=== PATIENT | female | born 1990 | race Caucasian/White ===

== ENCOUNTER 2017-11-07 23:55 | Inpatient (IN) | payer OTHER ==
[~2017-11-07] VITALS: Ht 177.8 cm; Wt 91.1 kg
[2017-11-08 00:33] VITALS: BP 132/73
[2017-11-08] MEDS ORDERED: PNV11TAB5 PO (00:53)
[2017-11-08] MEDS ORDERED: EVE1000C3 PO (00:53)
[2017-11-08] MEDS ORDERED: D5%-LACTATED RINGERS 1,000 ML IV SCH (01:20)
[2017-11-08] MEDS ORDERED: OXYTOCIN 30U/ 0.9% NaCL 500ML 500 ML IV ONE (01:20)
[2017-11-08] MEDS ORDERED: AMPICILLIN 2 GM in SODIUM CHLORIDE 0.9% 100 ML IVPB STA (01:20)
[2017-11-08] MEDS ORDERED: LACTATED RINGERS 1,000 ML IV SCH ×2 (01:20→11:19)
[2017-11-08] MEDS ORDERED: LIDOCAINE-MPF 1%, 5ML ONE ×3 (01:24→01:27)
[2017-11-08] MEDS ORDERED: MISOPROSTOL 200 MCG TABLET ONE (01:24)
[2017-11-08] MEDS ORDERED: NEWBORN KIT ONE (01:24)
[2017-11-08] MEDS ORDERED: OXYTOCIN 30U/ 0.9% NaCL 500ML 500 ML ONE (01:25)
[2017-11-08] MEDS ORDERED: FENTANYL PF 100 MCG/2ML IVPush PRN (01:30)
[2017-11-08] MEDS ORDERED: FENTANYL PF 100 MCG/2ML IV PRN (01:30)
[2017-11-08] MEDS ORDERED: ONDANSETRON 2MG/ML, 2ML IVPush PRN (01:30)
[2017-11-08 01:42] LABS: BASOPHILS # (AUTO) 0.08 x10^3/uL (0-0.1); BASOPHILS % (AUTO) 1 % (0-1); EOSINOPHILS # (AUTO) 0.17 x10^3/uL (0-0.4); EOSINOPHILS % (AUTO) 1 % (1-7); LYMPHOCYTES # (AUTO) 2.28 x10^3/uL (1-3.4); LYMPHOCYTES % (AUTO) 17 % (22-44); MD NO; MEAN CORPUSCULAR HEMOGLOBIN 32.9 pg (27.0-34.8); MEAN CORPUSCULAR HGB CONC 34.1 g/dL (32.4-35.8); MEAN CORPUSCULAR VOLUME 96.6 fL (80-100); MEAN PLATELET VOLUME 9.6 fL (7.4-10.4); MONOCYTES # (AUTO) 0.96 x10^3/uL (0.2-0.8); MONOCYTES % (AUTO) 7 % (2-9); NEUTROPHILS # (AUTO) 9.68 x10^3/uL (1.8-6.8); NEUTROPHILS % (AUTO) 74 % (42-75); PLATELET COUNT 225 x10^3/uL (130-400); RED BLOOD COUNT 3.87 x10^6/uL (3.82-5.3)
[2017-11-08] MEDS: AMPICILLIN 1 GM in SODIUM CHLORIDE 0.9% 100 ML IVPB SCH ×4 (05:38→18:11)
[2017-11-08] MEDS ORDERED: FENTANYL PF 100 MCG/2ML ONE (10:34)
[2017-11-08] MEDS ORDERED: FENTANYL/BUPIV./NS/PF 250 ML EPIDCONT SCH (11:19)
[2017-11-08] MEDS ORDERED: BUPIVACAINE/PF 0.25% ONE (11:20)
[2017-11-08] MEDS ORDERED: FENTANYL/BUPIV./NS/PF 250 ML EPIDCONT ONE (11:20)
[2017-11-08] MEDS ORDERED: EPHEDRINE 50 MG/ML, 1ML IVPush PRN (11:30)
[2017-11-08] MEDS ORDERED: LACTATED RINGERS 1,000 ML IVBOLUS PRN (11:30)
[2017-11-08] MEDS ORDERED: NALOXONE 0.4 MG/ML, 1ML IVPush PRN (11:30)
[2017-11-08] MEDS ORDERED: OXYTOCIN 30U/ 0.9% NaCL 500ML 500 ML IV PRN (16:34)
[2017-11-08] MEDS: OXYTOCIN 30U/ 0.9% NaCL 500ML 500 ML IV SCH (20:14)
[2017-11-08] MEDS ORDERED: METOCLOPRAMIDE 5 MG/ML, 2ML IV PRN (20:30)
[2017-11-08] MEDS ORDERED: GLYCERIN ADULT SUPP PR PRN (20:30)
[2017-11-08] MEDS ORDERED: METHYLERGONOVINE 0.2 MG/ML IM PRN (20:30)
[2017-11-08] MEDS ORDERED: ONDANSETRON 2MG/ML, 2ML IV PRN (20:30)
[2017-11-08] MEDS ORDERED: MISOPROSTOL 200 MCG TABLET PR PRN (20:30)
[2017-11-08] MEDS ORDERED: IBUPROFEN 600 MG TABLET PO PRN (20:30)
[2017-11-08] MEDS ORDERED: OXYcodone/APAP 5/325MG TABLET PO PRN ×2 (20:30)
[2017-11-08] MEDS ORDERED: BISACODYL 10 MG SUPP PR PRN (20:30)
[2017-11-08] MEDS ORDERED: CARBOPROST TROMETHAMINE 250 MCG/ML, 1ML IM PRN (20:30)
[2017-11-08] MEDS ORDERED: ACETAMINOPHEN 325 MG TABLET PO PRN (20:30)
[2017-11-08 22:45] VITALS: BP 97/55
[2017-11-09 02:30] VITALS: BP 99/58
[2017-11-09] MEDS: OXYTOCIN 30U/ 0.9% NaCL 500ML 500 ML IV SCH ×2 (06:14→16:14)
[2017-11-09 06:39] LABS: MEAN CORPUSCULAR HEMOGLOBIN 33.4 pg (27.0-34.8); MEAN CORPUSCULAR HGB CONC 34.1 g/dL (32.4-35.8); MEAN CORPUSCULAR VOLUME 98.1 fL (80-100); MEAN PLATELET VOLUME 9.8 fL (7.4-10.4); PLATELET COUNT 210 x10^3/uL (130-400); RED BLOOD COUNT 3.18 x10^6/uL (3.82-5.3); RED CELL DISTRIBUTION WIDTH 14.1 % (9.6-15.2)
[2017-11-09 06:51] LABS: BASOPHILS # (AUTO) 0.03 x10^3/uL (0-0.1); BASOPHILS % (AUTO) 0 % (0-1); EOSINOPHILS # (AUTO) 0.03 x10^3/uL (0-0.4); EOSINOPHILS % (AUTO) 0 % (1-7); LYMPHOCYTES # (AUTO) 1.56 x10^3/uL (1-3.4); LYMPHOCYTES % (AUTO) 10 % (22-44); MD SCAN; MONOCYTES # (AUTO) 1.19 x10^3/uL (0.2-0.8); MONOCYTES % (AUTO) 8 % (2-9); NEUTROPHILS # (AUTO) 12.22 x10^3/uL (1.8-6.8); NEUTROPHILS % (AUTO) 81 % (42-75)
[2017-11-09 08:00] VITALS: BP 97/69
[2017-11-09] MEDS: PRENATAL VIT/IRON/FA 1 EACH TABLET PO SCH (08:35)
[2017-11-09] MEDS: DOCUSATE 100 MG CAPSULE PO PRN (08:35)
[2017-11-09 12:00] VITALS: BP 112/64
[2017-11-09 16:00] VITALS: BP 110/70
[2017-11-09] MEDS: IBUPROFEN 800 MG TABLET PO PRN (16:07)
[2017-11-09 20:05] VITALS: BP 98/60
[2017-11-10] MEDS: IBUPROFEN 800 MG TABLET PO PRN (04:50)
[2017-11-10 07:51] VITALS: BP 104/61
[2017-11-10] MEDS: PRENATAL VIT/IRON/FA 1 EACH TABLET PO SCH (08:06)
[2017-11-10] MEDS: DOCUSATE 100 MG CAPSULE PO PRN (08:07)
[2017-11-10] MEDS ORDERED: IBUP-1222 PO (10:10)
== END 2017-11-10 12:34 | disposition home or self-care (01) | DRG 775 ==
LOC: LDOP 23:55 → LDIP 11-08 01:20 → 2NW 11-08 22:32
PROVIDERS: ADMIT Obstetrics & Gynecology; ATTEND Obstetrics & Gynecology
PROC: 10E0XZZ Delivery of Products of Conception, External Approach (ICD-10-PCS; principal; 2017-11-08)
PROC: 0KQM0ZZ Repair Perineum Muscle, Open Approach (ICD-10-PCS; 2017-11-08)
PROC: 0W8NXZZ Division of Female Perineum, External Approach (ICD-10-PCS; 2017-11-08)
PROC: 3E0R3BZ Introduction of Anesthetic Agent into Spinal Canal, Percutaneous Approach (ICD-10-PCS; 2017-11-08)
PROC: 00HU33Z Insertion of Infusion Device into Spinal Canal, Percutaneous Approach (ICD-10-PCS; 2017-11-08)
DX: O76 Abnormality in fetal heart rate and rhythm complicating labor and delivery (principal); O70.0 First degree perineal laceration during delivery; Z37.0 Single live birth; Z3A.40 40 weeks gestation of pregnancy
CPT/HCPCS: 36415; 85025; 86850; 86900; 89060; J0290; J3010; J3490; J2590; J7120; Q0114

== ENCOUNTER 2019-05-20 10:42 | Inpatient (IN) | payer OTHER ==
[~2019-05-20] VITALS: Ht 177.8 cm; Wt 101.8 kg
[~2019-05-20 10:42] MED LIST: EVE1000C3 PO; IBUP-1222 PO; PNV11TAB5 PO
[2019-05-27] MEDS ORDERED: OXYTOCIN 30U/ 0.9% NaCL 500ML 500 ML IV ONE (05:25)
[2019-05-27] MEDS ORDERED: AMPICILLIN 2 GM in SODIUM CHLORIDE 0.9% 100 ML IVPB STA (05:25)
[2019-05-27] MEDS ORDERED: OXYTOCIN 30U/ 0.9% NaCL 500ML 500 ML IV PRN (05:25)
[2019-05-27] MEDS ORDERED: D5%-LACTATED RINGERS 1,000 ML IV SCH (05:25)
[2019-05-27] MEDS ORDERED: FENTANYL PF 100 MCG/2ML IVPush PRN (05:30)
[2019-05-27] MEDS ORDERED: ONDANSETRON 2MG/ML, 2ML IVPush PRN (05:30)
[2019-05-27] MEDS ORDERED: ALUMINUM/MAG/SIMETHICONE 30 ML UDC PO PRN (05:30)
[2019-05-27] MEDS ORDERED: SODIUM CITRATE/CITRIC ACID 30 ML UDC PO PRN (05:30)
[2019-05-27] MEDS ORDERED: FENTANYL PF 100 MCG/2ML IV PRN (05:30)
[2019-05-27] MEDS ORDERED: AMPICILLIN 1 GM in SODIUM CHLORIDE 0.9% 50 ML IVPB SCH (05:30)
[2019-05-27] MEDS ORDERED: TERBUTALINE 1 MG/ML, 1ML IVPush PRN (05:30)
[2019-05-27] MEDS ORDERED: TERBUTALINE 1 MG/ML, 1ML SQ PRN (05:30)
[2019-05-27 05:34] VITALS: BP 111/60
[2019-05-27] MEDS ORDERED: PREN-3 PO (05:42)
[2019-05-27] MEDS: LACTATED RINGERS 1,000 ML IV SCH ×3 (06:06→20:06)
[2019-05-27] MEDS ORDERED: OXYTOCIN 30U/ 0.9% NaCL 500ML 500 ML ONE ×2 (06:08→18:15)
[2019-05-27] MEDS ORDERED: LIDOCAINE 1%, 20ML ONE (06:08)
[2019-05-27] MEDS ORDERED: MISOPROSTOL 200 MCG TABLET ONE (06:08)
[2019-05-27 06:09] LABS: BASOPHILS % (AUTO) 1 % (0-1); EOSINOPHILS # (AUTO) 0.19 x10^3/uL (0-0.4); EOSINOPHILS % (AUTO) 2 % (1-7); LYMPHOCYTES # (AUTO) 1.57 x10^3/uL (1-3.4); LYMPHOCYTES % (AUTO) 20 % (22-44); MD NO; MEAN CORPUSCULAR HEMOGLOBIN 32.4 pg (27.0-34.8); MEAN CORPUSCULAR HGB CONC 33.1 g/dL (32.4-35.8); MEAN CORPUSCULAR VOLUME 97.9 fL (80-100); MONOCYTES # (AUTO) 0.58 x10^3/uL (0.2-0.8); MONOCYTES % (AUTO) 7 % (2-9); NEUTROPHILS # (AUTO) 5.49 x10^3/uL (1.8-6.8); NEUTROPHILS % (AUTO) 69 % (42-75); PLATELET COUNT 235 x10^3/uL (130-400); RED BLOOD COUNT 3.92 x10^6/uL (3.82-5.3); RED CELL DISTRIBUTION WIDTH 14.1 % (9.6-15.2)
[2019-05-27] MEDS ORDERED: NEWBORN KIT ONE (06:27)
[2019-05-27] MEDS ORDERED: FENTANYL/BUPIV./NS/PF 250 ML EPIDCONT SCH (07:55)
[2019-05-27] MEDS ORDERED: FENTANYL PF 500 MCG, BUPIVACAINE/PF 0.5%, 30ML 62.5 ML in SODIUM CHLORIDE 0.9% 177.5 ML EPIDCONT SCH (08:30)
[2019-05-27] MEDS ORDERED: AMPICILLIN 1 GM in SODIUM CHLORIDE 0.9% 100 ML IVPB SCH (17:30)
[2019-05-27] MEDS ORDERED: SIMETHICONE 80 MG CHEW TAB PO PRN (18:00)
[2019-05-27] MEDS ORDERED: METHYLERGONOVINE 0.2 MG/ML IM PRN (18:00)
[2019-05-27] MEDS ORDERED: OXYcodone/APAP 5/325MG TABLET PO PRN (18:00)
[2019-05-27] MEDS ORDERED: MISOPROSTOL 200 MCG TABLET PR PRN (18:00)
[2019-05-27] MEDS ORDERED: OXYcodone/APAP 5/325MG TABLET ONE (18:03)
[2019-05-27] MEDS ORDERED: IBUPROFEN 600 MG TABLET ONE (18:03)
[2019-05-27] MEDS: OXYcodone/APAP 5/325MG TABLET PO PRN (18:06)
[2019-05-27] MEDS: IBUPROFEN 600 MG TABLET PO PRN (18:06)
[2019-05-27] MEDS: OXYTOCIN 30U/ 0.9% NaCL 500ML 500 ML IV SCH (18:18)
[2019-05-27 19:05] VITALS: BP 114/65
[2019-05-27 21:00] VITALS: BP 124/78
[2019-05-27] MEDS: DOCUSATE 100 MG CAPSULE PO SCH (21:00)
[2019-05-28] VITALS: BP 102/69
[2019-05-28] MEDS: OXYcodone/APAP 5/325MG TABLET PO PRN ×3 (00:43→12:37)
[2019-05-28] MEDS: OXYTOCIN 30U/ 0.9% NaCL 500ML 500 ML IV SCH ×2 (03:56→13:56)
[2019-05-28 04:00] VITALS: BP 83/48
[2019-05-28] MEDS: IBUPROFEN 600 MG TABLET PO PRN ×2 (05:51→12:35)
[2019-05-28 06:00] LABS: BASOPHILS # (AUTO) 0.02 x10^3/uL (0-0.1); BASOPHILS % (AUTO) 0 % (0-1); EOSINOPHILS # (AUTO) 0.24 x10^3/uL (0-0.4); EOSINOPHILS % (AUTO) 3 % (1-7); LYMPHOCYTES # (AUTO) 1.54 x10^3/uL (1-3.4); LYMPHOCYTES % (AUTO) 16 % (22-44); MD NO; MEAN CORPUSCULAR HEMOGLOBIN 32.6 pg (27.0-34.8); MEAN CORPUSCULAR HGB CONC 33.2 g/dL (32.4-35.8); MEAN CORPUSCULAR VOLUME 98.2 fL (80-100); MEAN PLATELET VOLUME 9.3 fL (7.4-10.4); MONOCYTES # (AUTO) 0.87 x10^3/uL (0.2-0.8); MONOCYTES % (AUTO) 9 % (2-9); NEUTROPHILS # (AUTO) 7.15 x10^3/uL (1.8-6.8); NEUTROPHILS % (AUTO) 73 % (42-75); PLATELET COUNT 200 x10^3/uL (130-400); RED CELL DISTRIBUTION WIDTH 14.3 % (9.6-15.2)
[2019-05-28] MEDS ORDERED: IBUP-1222 PO (07:57)
[2019-05-28] MEDS ORDERED: OXYC-302 PO (07:57)
[2019-05-28] MEDS: DOCUSATE 100 MG CAPSULE PO SCH (08:17)
[2019-05-28 08:25] VITALS: BP 95/58
[2019-05-28] MEDS ORDERED: PRENATAL VIT/IRON/FA 1 EACH TABLET PO SCH (09:00)
[2019-05-28 12:30] VITALS: BP 112/70
== END 2019-05-28 17:09 | disposition home or self-care (01) | DRG 806 ==
LOC: LDIP 05-27 05:20 → 2NW 05-27 21:18
PROVIDERS: ADMIT Obstetrics & Gynecology; ATTEND Obstetrics & Gynecology
PROC: 10E0XZZ Delivery of Products of Conception, External Approach (ICD-10-PCS; principal; 2019-05-27)
PROC: 0UQGXZZ Repair Vagina, External Approach (ICD-10-PCS; 2019-05-27)
DX: O48.0 Post-term pregnancy (principal); O71.4 Obstetric high vaginal laceration alone; Z37.0 Single live birth; O71.82 Other specified trauma to perineum and vulva; O99.824 Streptococcus B carrier state complicating childbirth; Z3A.41 41 weeks gestation of pregnancy
CPT/HCPCS: 36415; 85025; 86850; 86900; G0378; J0290; J2590; J7120